=== PATIENT | male | born 2000 | race Caucasian/White ===

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

== ENCOUNTER 2020-09-05 16:02 | Inpatient (IN) | payer SELFPAY ==
[~2020-09-05] VITALS: Ht 188 cm; Wt 66.3 kg
[2020-09-05] MEDS ORDERED: ZOFRAN 4MG T4 MG/TAB PO (16:38)
[2020-09-05] MEDS ORDERED: FLAGYL500 MG PO (16:38)
[2020-09-05 17:36] VITALS: BP 102/58; PULSE 91; TEMP 98.6
[2020-09-05 19:50] VITALS: BP 108/66; PULSE 95; TEMP 98.2
--- NOTE | 2020-09-05 21:00 | NUR ---
Initial shift assessment done- denies pain at this time- " Im doing ok", Did have stool- liquid brown/bloody--sent to lab for testing ordered. Pt tolerating liquids without nausea. States getting up for stools about every 1-2 hours- small amounts. IV fluids of NS at 125cc/hr
[2020-09-05 23:55] VITALS: BP 102/57; PULSE 87; TEMP 99.6
[2020-09-06 03:28] VITALS: BP 102/59; PULSE 83; TEMP 98.9
--- NOTE | 2020-09-06 05:25 | NUR ---
Did sleep for a few hours in between visits to the bathroom- did have liquid stool small amounts every 1-2hours throughout the night- brown/bloody. VSS. did have slight temp of 99.6
[2020-09-06 06:19] LABS: MEAN CELL VOLUME 86 fl (80.0-100.0); MEAN CORPUSCULAR HGB CONC 34 g/dl (33.0-37.0); MEAN PLATELET VOLUME 9.8 fl (7.4-10.4); PLATELET COUNT 253 K/mm3 (130-400); RED BLOOD COUNT 3.31 M/mm3 (4.20-5.60); REDCELL DISTRIBUTION WIDTH-CV 11.7 % (11.5-14.5)
[2020-09-06 06:21] LABS: HEMATOCRIT 28.6 % (42.0-52.0); HEMOGLOBIN 9.7 g/dl (13.5-18.0); MEAN CORPUSCULAR HEMOGLOBIN 29 pg (27.0-31.0)
[2020-09-06 06:35] LABS: C-REACTIVE PROTEIN 7.9 mg/dL (0.0-0.9); CALCIUM 7.8 mg/dL (8.4-10.2); CREATININE, serum 0.96 (0.66-1.25); POTASSIUM 3.6 mmol/L (3.4-5.0)
[2020-09-06 07:14] LABS: ERYTHROCYTE SEDIMENTATION RATE 19 mm/hr (0-15)
[2020-09-06 07:25] LABS: BAND 22 % (0-10); EOSINOPHIL 7 % (0-4); LYMPHOCYTE 14 % (20.0-51.0); METAMYELOCYTE 3 % (0-0); MYELOCYTE 1 % (0-0); NEUTROPHILS 45 % (42.0-75.2); PLATELET ESTIMATE NORMAL (NORMAL)
[2020-09-06 08:30] VITALS: BP 100/58; PULSE 91; TEMP 98.6
--- NOTE | 2020-09-06 09:20 | NUR ---
Initial visit; Patient thanked [employer] for offering God's blessings and to keep him in [employer]'s prayers. [employer]pper will follow up.
--- NOTE | 2020-09-06 09:28 | NUR ---
Pt assessment completed and charted. Pt A&O, independent in room, on room air, breathing is even and ulabored, LS cta, BS active. Pt denies SOB, n/v. Pt states he is having liquid/bloody diarrhea q1-2 hrs, this nurse has not observed yet. Pulses strong bilaterally, HRRR, no tele. Pt denies chest pain. pt c/o some abdominal pain/discomfort, denies need for pain medication at this time. Pt tolerating some clear liquids, recommended not to drink anything red. Awaiting pending test results. LFA IV w/ IVF and zosyn running w/o issue. No further needs expressed at this time. Call light w/in reach. SCDs not on, pt amblating on own to bathroom frequently.
--- NOTE | 2020-09-06 10:52 | NUR ---
SW met with the patient to discuss discharge plan. The patient lives in [place] with his mother, Nina (ph#[phone]), and father. He is a senior at [employer]. He reports independence with ADLs and does not have any DME. The patient receives primary care at [facility] and he obtains his medications from [facility]. The patient plans to return home with his family upon discharge. No additional needs at this time.
[2020-09-06 11:02] LABS: CLOSTRIDIUM DIFF A/B NEG; CLOSTRIDIUM DIFF A/B INTERP No C.diff present
[2020-09-06 12:00] VITALS: BP 99/54; PULSE 85; TEMP 98.1
[2020-09-06 15:53] LABS: HEMOGLOBIN 10.4 g/dl (13.5-18.0)
[2020-09-06 16:05] LABS: HEMATOCRIT 31.3 % (42.0-52.0)
[2020-09-06 16:14] VITALS: BP 96/60; PULSE 101; TEMP 98.3
--- NOTE | 2020-09-06 18:37 | NUR ---
Pt only complaining of discomfort to abdomen, not requesting anything for pain. Tolerating liquids well. No further needs.
[2020-09-06 20:55] VITALS: BP 94/58; PULSE 87; TEMP 99.7
[2020-09-07] VITALS (8 sets, daily range): BP systolic 93–103; BP diastolic 51–60; PULSE 76–90; TEMP 94–99.7
--- NOTE | 2020-09-07 06:39 | NUR ---
Patient calm and cooperative throughout the night with no requests or concernns verbalized.
[2020-09-07 06:58] LABS: CALCIUM 7.5 mg/dL (8.4-10.2); CREATININE, serum 0.7 (0.66-1.25); POTASSIUM 3.4 mmol/L (3.4-5.0)
[2020-09-07 06:59] LABS: MEAN CELL VOLUME 87 fl (80.0-100.0); MEAN CORPUSCULAR HGB CONC 33 g/dl (33.0-37.0); MEAN PLATELET VOLUME 9.7 fl (7.4-10.4); PLATELET COUNT 220 K/mm3 (130-400); RED BLOOD COUNT 3.02 M/mm3 (4.20-5.60); REDCELL DISTRIBUTION WIDTH-CV 11.9 % (11.5-14.5)
[2020-09-07 07:08] LABS: HEMATOCRIT 26.4 % (42.0-52.0); HEMOGLOBIN 8.8 g/dl (13.5-18.0); MEAN CORPUSCULAR HEMOGLOBIN 29 pg (27.0-31.0)
--- NOTE | 2020-09-07 08:22 | NUR ---
Pt assessment completed and charted, medications administered per mar. Pt laying in bed, A&O, independent in room, on room air. Breathing is even and unlabored. Pt states his pain is "good". Denies need for pain medications, states he hasn't had a BM in a few hours. LFA IV w/ NS @ 125ml/hr running w/o issues. LS cta, BS active, HRRR, pulses strong bilaterally. Pt denies dizziness, SOB, N/V, chest pain. Call light within reach. No further needs at this time.
[2020-09-07 13:12] LABS: IRON,SERUM 23 ug/dL (35-150)
[2020-09-07 13:21] LABS: TOTAL IRON BINDING CAPACITY 183 ug/dL (261-462)
[2020-09-07 13:34] LABS: HEMATOCRIT 27.5 % (42.0-52.0); HEMOGLOBIN 9.4 g/dl (13.5-18.0)
[2020-09-07 16:16] LABS: CLOSTRIDIUM DIFF A/B NEG; CLOSTRIDIUM DIFF A/B INTERP No C.diff present
[2020-09-07 22:09] LABS: FOLATE (FOLIC ACID) 12.5 ng/mL (7.0-31.4)
--- NOTE | 2020-09-07 22:10 | NUR ---
Resting in bed. Assessment complete. Lungs clear. Heart sounds normal. Bowels active x4. Pulses present throughout. No edema noted. IV left forearm without complications. Denies pain. Denies needs at this time. Call light in reach.
--- NOTE | 2020-09-08 00:25 | NUR ---
Resting in bed. Denies needs. Call light in reach.
--- NOTE | 2020-09-08 02:16 | NUR ---
Resting in bed asleep. Call light in reach.
[2020-09-08 04:07] VITALS: BP 101/57; PULSE 88; TEMP 98.5
--- NOTE | 2020-09-08 04:53 | NUR ---
Resting in bed. Denies needs. Call light in reach.
--- NOTE | 2020-09-08 06:29 | NUR ---
Patient reported x7 stools since 1800 last night. Otherwise uneventful night. Resting in bed this AM.
--- NOTE | 2020-09-08 07:21 | NUR ---
Report given to JOSSELYN Narvaez
[2020-09-08 08:02] VITALS: BP 100/55; PULSE 90; TEMP 98.8
[2020-09-08 09:17] LABS: MEAN CELL VOLUME 88 fl (80.0-100.0); MEAN CORPUSCULAR HGB CONC 34 g/dl (33.0-37.0); MEAN PLATELET VOLUME 9.9 fl (7.4-10.4); PLATELET COUNT 255 K/mm3 (130-400); RED BLOOD COUNT 3.28 M/mm3 (4.20-5.60); REDCELL DISTRIBUTION WIDTH-CV 11.9 % (11.5-14.5)
[2020-09-08 09:21] LABS: HEMATOCRIT 28.8 % (42.0-52.0); HEMOGLOBIN 9.7 g/dl (13.5-18.0); MEAN CORPUSCULAR HEMOGLOBIN 30 pg (27.0-31.0)
[2020-09-08 09:27] LABS: CREATININE, serum 0.74 (0.66-1.25); POTASSIUM 3.4 mmol/L (3.4-5.0)
--- NOTE | 2020-09-08 11:00 | NUR ---
Patient has been doing well today. Denies pain and nausea. He is having less stools today than previously. He stated they are about 1/2 the amount as previous days. No other changes at this time. Call light within reach.
[2020-09-08 11:31] VITALS: BP 98/52; PULSE 91; TEMP 98.1
[2020-09-08] MEDS ORDERED: ZOFRAN 4MG T4 MG/TAB PO (14:20)
[2020-09-08] MEDS ORDERED: FERROUS SU325 MG/TAB PO (14:20)
[2020-09-08] MEDS ORDERED: VANCOCIN H125 MG/CAP PO (14:20)
[2020-09-08] MEDS ORDERED: PROTONIX 40MG T40 MG PO (14:21)
--- NOTE | 2020-09-08 17:30 | NUR ---
Patient is discharging home. Discharge instructions discussed with patient around 1600. Explained his scripts have sent to the pharmacy. Explained how often to take the medications. Explained he needs to have his ride spanish [employer] picker the prescriptions on the way here because his pharmacy will be closing. Explained the diet he needs to be on at home. He had several questions about the medications and how they work. Explained how to clean at home and how to keep the c-diff from spreading. Copies of discharge instructions sent with patient. All belongings packed up and sent with patient. Patient walked out by Ritika SILVA.
== END 2020-09-08 17:30 | disposition home or self-care (01) | DRG 371 ==
LOC: MEDICAL 16:02
PROVIDERS: Physician Assistant; Student in an Organized Health Care Education/Training Program; ADMIT Hospitalist
DX: A04.72 Enterocolitis due to Clostridium difficile, not specified as recurrent (principal); E43 Unspecified severe protein-calorie malnutrition; K92.2 Gastrointestinal hemorrhage, unspecified; D62 Acute posthemorrhagic anemia; Z68.1 Body mass index [BMI] 19.9 or less, adult
CPT/HCPCS: 99222-AI; 99232-AI; 99239; J2543; J7030; Q9967

== ENCOUNTER 2020-09-15 10:07 | Day surgery (SDC) | payer SELFPAY ==
[~2020-09-15] VITALS: Ht 188 cm; Wt 61.6 kg
[2020-09-15] VITALS (7 sets, daily range): BP systolic 98–116; BP diastolic 54–71; PULSE 83–118; TEMP 97.3
[~2020-09-15 10:07] MED LIST changes: +FERROUS SU325 MG/TAB PO; +FLAGYL500 MG PO; +PROTONIX 40MG T40 MG PO; +VANCOCIN H125 MG/CAP PO; +ZOFRAN 4MG T4 MG/TAB PO
--- NOTE | 2020-09-15 13:30 | NUR ---
Patient returns to [address] per cart and transfers to recliner with 2 person assist. IV fluids infuising at 150cc/hr RAC and site free of redness. Temp 99.6. Report received from Sepideh ARCOS and states that he had numerous warm blankets on during procedure. Call light in reach.
--- NOTE | 2020-09-15 13:45 | NUR ---
Labs drawn as ordered. IV fluids infusing. Call light in reach. Allowed to rest.
[2020-09-15 13:58] LABS: HEMATOCRIT 24.1 % (42.0-52.0); MEAN CELL VOLUME 89 fl (80.0-100.0); MEAN CORPUSCULAR HEMOGLOBIN 29 pg (27.0-31.0); MEAN CORPUSCULAR HGB CONC 33 g/dl (33.0-37.0); MEAN PLATELET VOLUME 9.1 fl (7.4-10.4); PLATELET COUNT 361 K/mm3 (130-400); RED BLOOD COUNT 2.72 M/mm3 (4.20-5.60); REDCELL DISTRIBUTION WIDTH-CV 12.5 % (11.5-14.5)
[2020-09-15 14:09] LABS: ALBUMIN 2.6 gm/dL (3.5-5.0); BILIRUBIN,TOTAL 0.4 mg/dL (0.0-1.0); C-REACTIVE PROTEIN 5.6 mg/dL (0.0-0.9); CALCIUM 8.2 mg/dL (8.4-10.2); CREATININE, serum 0.88 (0.66-1.25); POTASSIUM 4.1 mmol/L (3.4-5.0); TOTAL PROTEIN 5.6 gm/dL (6.4-8.2)
[2020-09-15 14:10] LABS: IRON,SERUM 20 ug/dL (35-150)
[2020-09-15 14:21] LABS: TOTAL IRON BINDING CAPACITY 224 ug/dL (261-462)
[2020-09-15 14:32] LABS: HIV 1/2 Antibodies Non-Reactive; HIV-1p24 Antigen Non-Reactive
--- NOTE | 2020-09-15 15:00 | NUR ---
Patient tolerated muffin and water without any nausea. Patient reports he feels much better after eating.
--- NOTE | 2020-09-15 15:35 | NUR ---
Patient is able to urinate without any issues.
--- NOTE | 2020-09-15 15:40 | NUR ---
Dismissal instructions gone over with patient. Patient voices understanding and all questions answered.
--- NOTE | 2020-09-15 15:45 | NUR ---
Patient discharged to patient enterance to private vehicle his father is driving via wheelchair. Patient leaves thanking staff for services.
[2020-09-16 00:01] LABS: HEPATITIS B CORE AB,TOTAL Negative (()); HEPATITIS B SURFACE ANTIBODY 38.2 (()); HEPATITIS B SURFACE ANTIGEN Negative (Negative)
[2020-09-18 12:13] LABS: HEPATITIS AB (HAV) IGG INDEX 1.35 Index (<=1.00)
== END 2020-09-15 15:45 | disposition home or self-care (01) ==
LOC: SDCO 10:07
PROVIDERS: Internal Medicine Gastroenterology
DX: K51.00 Ulcerative (chronic) pancolitis without complications (principal); D64.9 Anemia, unspecified; K92.1 Melena
CPT/HCPCS: J2704; J2920; J3010; J7120